=== PATIENT | female | born 1975 | race Two or more races ===

== ENCOUNTER 2024-11-21 08:52 | Inpatient (IN) | payer MEDICAID, SELFPAY ==
[2024-11-21] VITALS (8 sets, daily range): BP systolic 102–131; BP diastolic 68–88; PULSE 80–101; RESP 15–100; TEMP 36.3–37.2; O2SAT 96–99; BMI 25.0
--- NOTE | 2024-11-21 | XR_ITS ---
Examinations: MRI Brain without intravenous contrast. MRA brain without intravenous contrast. MRA carotids without intravenous contrast 3-D vascular reconstructions Date and time of exam: November 21, 2024 1326 hrs. Indications: Stroke alert today, onset vomiting altered mental status left-sided body weakness Technique: Multiple axial and sagittal images of the brain have been obtained MRA brain carotid images without contrast obtained, including 3-D postprocessing, vascular maximum intensity projection images Findings: Extensive magnetic susceptibility artifact, likely dental work obscures the anterior portions of the diffusion weighted images No focus of restricted diffusion is noted No FLAIR images diagnostic for demyelinating disease No significant ventricular enlargement No mass effect Pituitary is not enlarged Impression: Limited study, extensive magnetic susceptibility artifact No acute infarct noted No findings diagnostic for demyelinating disease
--- NOTE | 2024-11-21 08:54 | PC.NURSE ---
PT BROUGHT IN FRONT OF E.D. WITH FRIEND. PT IN WHEELCHAIR NOT TALKING. PER FRIEND SHE TOLD ME HER CHEST IS HURTING SINCE LAST NIGHT. PT LEANING TO RIGHT ON CHAIR AND UPON CLOSER ASSESSMENT, PT OPENED EYES WHEN NURSE OPENED HER EYES FIRST THEN NURSE NOTED LEFT ARM FLACCID. PT FOLLOWING DOMMAND TO LEFT ARMS AND RAISED RIGHT ARM BUT NOT LEFT. STROKE ALERT CALLED AND PT TAKEN INTO OLD TRIAGE ROOM TO BE SEEN BY DR. RIOS.
--- NOTE | 2024-11-21 08:58 | EKG_ITS ---
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
--- NOTE | 2024-11-21 08:58 | XR_ITS ---
Examination: CTA carotids with intravenous contrast CTA brain, head with intravenous contrast. 2-D sagittal, coronal reconstructions. 3-D reconstructions. Exam date and time: November 21, 2024 0911 hrs. Indications: Stroke alert, onset left-sided body weakness beginning last night CTDI: vol (mGy) 31.8 DLP: (mGycm) 478 Technique: Multiple CTA axial brain, head carotid images post intravenous contrast injection 100 cc, Isovue-370. 2-D sagittal, coronal reconstructions. 3-D reconstructions, 3-D post processing including vascular maximum intensity projection images. Low dose protocols were performed. One or more of the following dose reduction techniques were used; automated exposure control, adjustment of the mA and/or KV according to patient size, use of iterative reconstruction technique. Findings: No significant common carotid carotid bifurcation retro-orbital stenoses Dominant right vertebral artery with no critical stenoses No cerebral large vessel arterial occlusions, thrombus dissection or cerebral aneurysm Impression: No significant neck arterial stenoses No cerebral large vessel arterial occlusions
--- NOTE | 2024-11-21 08:58 | XR_ITS ---
Examination: CT brain head without contrast. 2-D sagittal coronal reconstructions Date and time of exam:November 21, 2024 0904 hrs. Indications: Stroke alert, onset left-sided body numbness and weakness beginning last night CTDI: vol (mGy):40.4 DLP: (mGycm):917 Technique: Multiple CT axial sections of the brain have been obtained, 5 mm slice thickness. Contrast has not been administered. 2-D sagittal, coronal reconstructions have been obtained Low dose protocols were performed. One or more of the following dose reduction techniques were used; automated exposure control, adjustment of the mA and/or KV according to patient size, use of iterative reconstruction technique. Findings: No significant ventricular enlargement. Intra-axial or extra-axial hemorrhage density is not seen. No mass effect or midline shift Basal cisterns are not remarkable. Fourth ventricle is midline. Cranial vault intact. Impression: Negative for acute hemorrhage, mass effect or midline shift Brain MRI follow-up would best assess for demyelinating disease, acute ischemic change
[2024-11-21 09:13] LABS: Basophils # (Auto) 0.1 Thou/mm3 (0.0-0.2); Basophils % (Auto) 1 % (0-2.5); Eosinophils % (Auto) 0 % (0-10); Hematocrit 38.2 % (36.0-46.0); Hemoglobin 12.8 g/dL (12.0-16.0); Immature Granulocytes % (Auto) 0 % (0-0); Immature Granulocytes Auto 0.02 Thou/mm3 (0.00-0.00); Lymphocytes # (Auto) 1.3 Thou/mm3 (1.0-4.8); Lymphocytes % (Auto) 15 % (10-50); Mean Corpuscular HGB Conc 33.5 g/dl (31.0-37.0); Mean Corpuscular Hemoglobin 30.8 pg (25.0-35.0); Mean Corpuscular Volume 92 fL (80-100); Monocytes # (Auto) 0.6 Thou/mm3 (0.0-0.8); Monocytes % (Auto) 8 % (0-12); Neutrophils # (Auto) 6.5 Thou/mm3 (1.8-7.7); Neutrophils % (Auto) 77 % (37-80); Nucleated Red Blood Cell % 0 /100 WBC (0); Platelet Count 231 Thou/mm3 (140-440); RDW Standard Deviation 51.7 fL (36.4-46.3); Red Blood Count 4.15 Miln/mm3 (4.00-5.20); White Blood Count 8.5 Thou/mm3 (3.6-11.0)
[2024-11-21] MEDS: LORazepam 2 MG/ML VIAL IVP (09:20)
[2024-11-21 09:25] LABS: HCG Titer if Positive Negative
[2024-11-21 09:27] LABS: Partial Thromboplastin Time 24.8 Seconds (22.0-36.0); Prothrombin Time 10.7 Seconds (9.0-12.2)
[2024-11-21] MEDS: levETIRAcetam INJ 100 MG/ML VIAL 5ML 2000 MG IVP (09:30)
[2024-11-21 09:32] LABS: Alanine Aminotransferase 22 U/L (10-49); Albumin, Serum 4.2 gm/dL (3.5-5.0); Albumin/Globulin Ratio 1.1 (1.2-2.2); Alcohol, Blood Medical < 10.0 mg/dL (0-10.0); Alkaline Phosphatase 75 U/L (46-116); Anion Gap 7 (7-16); Aspartate Amino Transferase 24 U/L (0-34); BUN/Creatinine Ratio 15 Ratio (12-20); Bilirubin,Total 0.4 mg/dL (0.3-1.2); Blood Urea Nitrogen 12 mg/dL (9-23); Calcium 9.5 mg/dL (8.3-10.6); Calcium (Corrected) 9.5 mg/dL (8.5-10.1); Carbon Dioxide 23.6 mMol/L (20.0-31.0); Chloride 107 mMol/L (98-107); Creatinine (Component) 0.8 mg/dL (0.6-1.3); Globulin 3.8 gm/dL (2.3-3.5); Glucose 106 mg/dL (74-106); Magnesium 1.8 mg/dL (1.6-2.6); Osmolality,Calculated 275 (275-295); Potassium 4.2 mMol/L (3.4-5.1); Sodium 138 mMol/L (136-145); Troponin I < 0.002 ng/mL (0.0-0.045); eGFR > 60 See Note
--- NOTE | 2024-11-21 10:17 | PD.EDCHEST ---
ED Chest Pain RME/HPI General Chief Complaint: Chest Pain Stated Complaint: CHEST PAIN SINCE LAST NIGHT Time Seen by Provider: 11/21/24 09:05 Arrival date/time: 11/21/24 08:52 RME / HPI RME / HPI narrative: 49 year old female presents to the ED for evaluation of chest pain beginning last night. Described as aching in sensation and located most to the left side. However, while being triaged this morning had complained of left arm weakness and was noted to be leaning to the left side, a stroke alert was called overhead. Related Data Allergies Allergy/AdvReac Type Severity Reaction Status Date / Time No Known Drug Allergies Allergy Verified 11/21/24 09:39 Review of Systems Review of Systems Narrative Review of Systems: Gen: No fever, no chills EYES: No discharge, no visual changes, no pain HEENT: No ear pain, no congestion, no sore throat PULM: no shortness of breath, no cough, no congestion CV: + chest pain, no palpitations, no chest tightness GI: No nausea, no vomiting, no diarrhea, no pain, no constipation : No frequency, no urgency,? no dysuria Musc/skel: No joint pain, no back pain Skin: No rash, no ecchymosis, no lesions Psyc: No hallucinations, no depression Heme/Lymph: No easy bleeding or bruising tendencies Neuro: +left arm weakness, no headache Past Medical History Past Medical History RESPIRATORY: Negative Respiratory Disorders Social History SMOKING STATUS: Unknown if ever smoked ED Exam Narrative Physical exam: GENERAL APPEARANCE: AxOx4, poor eye contact, crying, anxious appearing HEENT: NC, AT. MMM. EOMI, clear conjunctiva, oropharynx clear. NECK: Supple without lymphadenopathy. No stiffness or restricted ROM. HEART: Normal rate and regular rhythm, normal S1/S1, no m/r/g LUNGS: CTAB, moving air well. No crackles or wheezes are heard. ABDOMEN: Soft, nontender, nondistended with good bowel sounds heard. BACK: No midline C/T/L spine pain or deformity, No CVAT, no obvious deformity. EXTREMITIES: Without cyanosis, clubbing or edema. MUSCULOSKELETAL: Left arm paralysis, no chest tenderness NEUROLOGICAL: Left arm paralysis. Alert and oriented. CN not formally tested but appear grossly intact. Skin: Warm and dry without any rash. Course Quality Measures Suspected type of Stroke: Non Acute Tenecteplase given: Reason(s) TPA not given: Stroke severity too mild (non-disabling) not given stroke Orders Category Date Time Status Bedside Blood Glucose NOW Care 11/21/24 08:58 Active COVID-19 Screening Questionnaire NOW Care 11/21/24 10:16 Active Typing Checker NOW Care 11/21/24 08:58 Active Continuous Pulse Oximetry NOW Care 11/21/24 08:58 Completed Decision to Admit X1 Care 11/21/24 10:16 Completed EKG (ED ONLY) *Do not use* NOW Care 11/21/24 08:58 Completed In and Out Catheter NEEDED Care 11/21/24 08:58 Active Insert IV NOW Care 11/21/24 08:58 Active NIH Stroke Scale now Care 11/21/24 08:58 Active NPO NOW Care 11/21/24 08:58 Active Neuro Check Q15MIN Care 11/21/24 08:58 Completed Nurse Swallow Screen x1 Care 11/21/24 08:58 Active Consult to Neurology / Tele-Neurology Routine Cons 11/21/24 08:[address] angio stroke protocol Stat Exams 11/21/24 08:[address] stroke protocol Stat Exams 11/21/24 08:58 Completed EKG (ED Only) Stat Exams 11/21/24 08:58 Draft Alcohol, Blood Medical Stat Lab 11/21/24 09:02 Completed CBC Stat Lab 11/21/24 09:02 Completed Comprehensive Metabolic Panel Stat Lab 11/21/24 09:02 Completed Drug Screen,Urine Stat Lab 11/21/24 12:35 Completed HCG Titer if Positive Stat Lab 11/21/24 09:02 Completed Lactic Acid [Lactate (Lactic Acid)] Stat Lab 11/21/24 10:31 Completed Magnesium Stat Lab 11/21/24 09:02 Completed Partial Thromboplastin Time Stat Lab 11/21/24 09:02 Completed Procalcitonin Stat Lab 11/21/24 10:31 Completed Prothrombin Time with INR Stat Lab 11/21/24 09:02 Completed Troponin I Stat Lab 11/21/24 09:02 Completed Urinalysis Stat Lab 11/21/24 12:35 Completed Urine Culture Stat Lab 11/21/24 12:35 Received Aspirin Med 11/21/24 10:13 Discontinued 325 mg PO X1 ONE LORazepam [Ativan Inj] Med 11/21/24 09:03 Discontinued 2 mg IVP X1 ONE Ondansetron Inj [Zofran Inj] Med 11/21/24 08:58 Active 4 mg IV Q4HR PRN levETIRAcetam INJ [Keppra Inj] Med 11/21/24 09:21 Discontinued 2,000 mg IVP X1 ONE Oxygen Delivery NOW RT 11/21/24 08:58 Active Reevaluation(s) Reevaluation #1: Patient sleeping comfortably Time: 10:12 Vital Signs Vital signs: Vital Signs Temperature 97.4 F 11/21/24 09:02 Pulse Rate 86 11/21/24 09:02 Respiratory Rate 18 11/21/24 09:02 Blood Pressure 131/88 H 11/21/24 09:02 Pulse Oximetry (%) 99 11/21/24 09:02 Oxygen Delivery Method Room Air 11/21/24 09:02 Pulse ox is 99% on room air which is adequate. Chest Pain MDM Narrative MDM Narrative:: Samantha Velarde am scribing for and in the presence of Dr. Mccrary. Patient data External records reviewed:: [facility] previous records (Per EMR, no previous ED Visits for review ) Clinical information provided by:: patient Social determinants that could affect healthcare access:: none Patient has the following chronic illnesses:: CAD How is presenting disease/condition affected by chronic disease/condition?: exacerbated by Evaluation data The following diagnostics were reviewed and interpreted by me:: lab results, radiology exam(s) and EKG tracing(s) (EKG #1 @ 0857 shows sinus rhythm, rate 90, no acute ischemic changes, no STEMI. EKG #2 @ 0929 shows sinus rhythm, rate 109, motion artifact, no STEMI. ) Lab and/or radiology exams considered but not ordered:: None Interpretation Summary: Ordering Physician: Bahman Mccrary MD Date of Service: 11/21/24 Procedure(s): CT stroke protocol Accession Number(s): [id number] cc: Bahman Mccrary MD; Alexander Juan MD~ Examination: CT brain head without contrast. 2-D sagittal coronal reconstructions Date and time of exam:November 21, 2024 0904 hrs. Indications: Stroke alert, onset left-sided body numbness and weakness beginning last night CTDI: vol (mGy):40.4 DLP: (mGycm):917 Technique: Multiple CT axial sections of the brain have been obtained, 5 mm slice thickness. Contrast has not been administered. 2-D sagittal, coronal reconstructions have been obtained Low dose protocols were performed. One or more of the following dose reduction techniques were used; automated exposure control, adjustment of the mA and/or KV according to patient size, use of iterative reconstruction technique. Findings: No significant ventricular enlargement. Intra-axial or extra-axial hemorrhage density is not seen. No mass effect or midline shift Basal cisterns are not remarkable. Fourth ventricle is midline. Cranial vault intact. Impression: Negative for acute hemorrhage, mass effect or midline shift Brain MRI follow-up would best assess for demyelinating disease, acute ischemic change Dictated By:Alexander Juan MD Signed By:<Electronically signed by Alexander Juan MD in [place]>11/21/24 0910 Ordering Physician: Bahman Mccrary MD Date of Service: 11/21/24 Procedure(s): CT angio stroke protocol Accession Number(s): [id number] cc: Bahman Mccrary MD; Alexander Juan MD~ Examination: CTA carotids with intravenous contrast CTA brain, head with intravenous contrast. 2-D sagittal, coronal reconstructions. 3-D reconstructions. Exam date and time: November 21, 2024 0911 hrs. Indications: Stroke alert, onset left-sided body weakness beginning last night CTDI: vol (mGy) 31.8 DLP: (mGycm) 478 Technique: Multiple CTA axial brain, head carotid images post intravenous contrast injection 100 cc, Isovue-370. 2-D sagittal, coronal reconstructions. 3-D reconstructions, 3-D post processing including vascular maximum intensity projection images. Low dose protocols were performed. One or more of the following dose reduction techniques were used; automated exposure control, adjustment of the mA and/or KV according to patient size, use of iterative reconstruction technique. Findings: No significant common carotid carotid bifurcation retro-orbital stenoses Dominant right vertebral artery with no critical stenoses No cerebral large vessel arterial occlusions, thrombus dissection or cerebral aneurysm Impression: No significant neck arterial stenoses No cerebral large vessel arterial occlusions Dictated By:Alexander Juan MD Signed By:<Electronically signed by Alexander Juan MD in OV>11/21/24 0953 Ordering Physician: Bahman Mccrary MD Date of Service: 11/21/24 Procedure(s): CT angio stroke protocol Accession Number(s): [id number] cc: Bahman Mccrary MD; Alexander Juan MD~ Examination: CTA carotids with intravenous contrast CTA brain, head with intravenous contrast. 2-D sagittal, coronal reconstructions. 3-D reconstructions. Exam date and time: November 21, 2024 0911 hrs. Indications: Stroke alert, onset left-sided body weakness beginning last night CTDI: vol (mGy) 31.8 DLP: (mGycm) 478 Technique: Multiple CTA axial brain, head carotid images post intravenous contrast injection 100 cc, Isovue-370. 2-D sagittal, coronal reconstructions. 3-D reconstructions, 3-D post processing including vascular maximum intensity projection images. Low dose protocols were performed. One or more of the following dose reduction techniques were used; automated exposure control, adjustment of the mA and/or KV according to patient size, use of iterative reconstruction technique. Findings: No significant common carotid carotid bifurcation retro-orbital stenoses Dominant right vertebral artery with no critical stenoses No cerebral large vessel arterial occlusions, thrombus dissection or cerebral aneurysm Impression: No significant neck arterial stenoses No cerebral large vessel arterial occlusions Dictated By:Alexander Juan MD Signed By:<Electronically signed by Alexander Juan MD in OV>11/21/24 0940 Medications / Prescriptions Medications or Prescriptions considered but not ordered:: None Medication administrations:: Medication Administration History Aspirin (Aspirin Ec 81 Mg Tabec) 81 mg PO X1 ONE Stop: 11/21/24 21:01 Atorvastatin Calcium (Atorvastatin Calcium 20 Mg Tablet) 80 mg PO HS NURIS Stop: 12/21/24 20:59 Heparin Sodium (Porcine) (Heparin Sod Inj 5000 Unit/Ml Vial) 7,500 unit SC Q8HR NURIS Stop: 12/05/24 21:59 Levetiracetam (Levetiracetam Inj 100 Mg/Ml Vial 5ml) 1,000 mg IVP Q12HR NURIS Stop: 12/21/24 20:59 Lorazepam (Lorazepam 2 Mg/Ml Vial) 2 mg IVP Q5MIN PRN PRN Reason: seizure breakthrough Stop: 11/26/24 12:23 Ondansetron HCl (Ondansetron Inj 2 Mg/Ml Inj 2 Ml) 4 mg IV Q4HR PRN PRN Reason: NAUSEA OR VOMITING Stop: 12/21/24 08:57 Last Admin: 11/21/24 16:34 Dose: 4 mg Documented By: TIMOTHY Discontinued Medications Aspirin (Aspirin 325 Mg Tablet) 325 mg PO X1 ONE Stop: 11/21/24 10:14 Last Admin: 11/21/24 10:54 Dose: 325 mg Documented By: TIMOTHY Levetiracetam (Levetiracetam Inj 100 Mg/Ml Vial 5ml) 2,000 mg IVP X1 ONE Stop: 11/21/24 09:22 Last Admin: 11/21/24 09:30 Dose: 2,000 mg Documented By: TIMOTHY Lorazepam (Lorazepam 2 Mg/Ml Vial) 2 mg IVP X1 ONE Stop: 11/21/24 09:04 Last Admin: 11/21/24 09:20 Dose: 2 mg Documented By: See above Consultations Consultation(s) initiated? (list below): Yes Consultation #1 (Physician, Specialty, Details): I spoke with teleneurologist, reports patient is not a tPA candidate. Recommends admission EEG, MRI, and Ativan. Time: 09:20 Consultation #2 (Physician, Specialty, Details): I spoke with resident Dr. Salmon working with Dr. Cowart. Discussed patients PMHx, HPI, ED course, exam findings, labs, and radiology results. The hospitalist agree to accept the patient for admission. Time: 10:15 Diagnosis Chest Pain Differential Diagnosis: pneumothorax, stable angina, unstable angina pectoris, atypical chest pain, st elevation myocardial infarction, costochondritis, chest pain, biliary colic and other (CVA, TIA ) Most likely diagnosis given after review of the tests above:: Weakness Anxiety Seizure Admission Indicated Admission indicated?: indicated Admission Request Was there a request for admission?: Yes Admission Attestation Admission request attestation: Discussed case with [] from Hospitalist service regarding admission. Discussed patients ED course, exam findings, labs, and radiology results. The Hospitalist [agrees,declines] to accept the patient for admission. Disposition Plan Disposition Plan: Admit Discharge Plan Plan Patient Disposition: Admit Acute Care w/in Hospital Problem List Clinical Impression: Weakness, Anxiety, Seizure
[2024-11-21 10:37] LABS: Lactate (Lactic Acid) 1.9 mMol/L (0.4-2.0)
[2024-11-21] MEDS: Aspirin 325 MG TABLET PO (10:54)
[2024-11-21 11:13] LABS: Procalcitonin 0.04 ng/ml (0.0-0.49)
--- NOTE | 2024-11-21 12:42 | PC.NURSE ---
This senior copywriter answered the call light for patient. Patient was full body shaking vigorously. Car Rental Deliverer asked patient if she was seizing and patient shook her head yes. Patient stopped shaking. Patient's significant other stated he was going to leave and get her medications. Patient began full body shaking again. Boyfriend left, patient stopped shaking and stated she needed to go to the bathroom. During these shaking episodes patient generally remains able to communicate throughout with about 10 seconds of not answering back (senior copywriter was speaking Stateless and patient is Maori speaking). No postictal state noted. MD notified and PRN ativan orders placed however patient not shaking/seizing so not given at this time.
[2024-11-21 12:45] LABS: Collection Type, Urine Clean Catch; WBC,Urine 0 /hpf (0-5)
--- NOTE | 2024-11-21 12:48 | PC.NURSE ---
Patients bed rails pads applied upon exiting CT on arrival
[2024-11-21 12:54] LABS: Bilirubin,Urine Negative (Negative); Blood,Urine Negative (Negative); Clarity,Urine Clear (Clear/Hazy); Color,Urine Colorless (Lt Yel-Yel); Glucose, Urine Negative (Negative); Ketones,Urine Negative (Negative); Leukocyte Esterase,Urine Negative (Negative); Nitrite,Urine Negative (Negative); Protein,Urine Negative (Neg - Trace); RBC,Urine 1 /hpf (0-3); Specific Gravity,Urine 1.041 (1.001-1.035); Squamous Epithelial Cell,Urine 1 /hpf (0-5); Urobilinogen,Urine Negative mg/dL (0.0-1.0)
--- NOTE | 2024-11-21 13:02 | ESHP_ITS ---
Documentation for date of: 11/21/24 HPI History of Present Illness History of present illness: 49-year-old Khmer speaking female patient with significant medical history for seizures and CAD came into ED for chest pain and seizure-like activities. Patient recently came from [place] to [facility] [place]. Per patient, she was worked up for CAD and was started on aspirin. Patient denied having previous symptoms of left-sided weakness, denied fever, chills, abdominal pain, diarrhea, constipation or other associate symptoms. Patient states that she is compliant with her seizure medication carbamazepine. Today she states that for the last month she has been having intermittent chest pain radiating to the left arm. Today she decided to come to ED since it was associated with nausea and vomiting along with left-sided weakness. ED vitals significant for BP 131/88, CBC was unremarkable, CMP was within normal limits, trops negative. Urinalysis was negative for UTI and toxicology was negative. EKG showed sinus tachycardia. In ED stroke alert was initiated. Head CT and head neck CTA were negative. Neuro telemetry was consulted by ED and recommendations were made for: patient is not a tPA candidate. Recommends admission EEG, MRI, and Ativan. Patient admitted for CVA and seizure workup. Medical Hx: CAD and seizure disorder Medications (need reconciliation): Aspirin and carbamazepine Surgical Hx: None Social Hx: Denies smoking cigarettes, drinking alcohol or using other illicit drugs, permanent residence in [place] Allergies: NKDA CODE STATUS: Full code Review of Systems Review of Systems Systems Reviewed: All systems reviewed, normal except as documented Exam Vital Signs Temp Pulse Resp BP Pulse Ox O2 Del Method O2 Flow Rate 98.8 F 96 21 H 114/68 97 Room Air 6 11/21/24 12:50 11/21/24 12:50 11/21/24 12:50 11/21/24 12:50 11/21/24 12:50 11/21/24 12:50 11/21/24 09:39 Narrative Exam Constitutional: well-developed, well-nourished, in mild distress, able to follow commands HEENT: NCAT, EOMI, reactive round pupils b/l, patent nares b/l, moist mucous membranes, tongue and uvula midline Lung: CTAB, no wheezing, no rhonchi Heart: Regular S1S2, no murmurs, gallops, or rubs Abdomen: Soft, non-distended, non-tender, bowel sounds present throughout Extremities: No cyanosis, clubbing, or edema, LE pulses present b/l Neurologic: AOx3, left side face droop, left face sensation loss, inability to smile or buffer cheeks, left side hemiparessis with loss of strength and sensation Skin: Warm, dry, no lesions or rashes noted Results: Labs 11/23/24 05:36 11/23/24 05:36 Labs: Short CBC 11/21/24 Range/Units 09:02 WBC 8.5 (3.6-11.0) Thou/mm3 Hgb 12.8 (12.0-16.0) g/dL Hct 38.2 (36.0-46.0) % Plt Count 231 (140-440) Thou/mm3 BMP 11/21/24 09:02 Sodium 138 Potassium 4.2 Chloride 107 Carbon Dioxide 23.6 BUN 12 Creatinine 0.8 Glucose 106 Calcium 9.5 Cardiac Enzymes 11/21/24 Range/Units 09:02 Troponin I < 0.002 (0.0-0.045) ng/mL Liver Function 11/21/24 Range/Units 09:02 Total Bilirubin 0.4 (0.3-1.2) mg/dL AST 24 (0-34) U/L ALT 22 (10-49) U/L Alkaline Phosphatase 75 (46-116) U/L Albumin 4.2 (3.5-5.0) gm/dL Quality Measures Quality Measures stroke Suspected type of Stroke: Non Acute Last known well (date): 11/21/24 Last known well (time): 03:00 Tenecteplase given: Reason(s) Tenecteplase not given: Stroke severity too mild (non-disabling) not given Rehab services: PT evaluation ordered VTE Prophylaxis: pharmaceutical Antithrombotic by day 2:: not indicated (describe) Statin ordered: <75 y/o high intensity dose Anticoagulation ordered for A-fib or flutter (current or hx): ordered Medications Home Medications and Allergies Allergies Allergy/AdvReac Type Severity Reaction Status Date / Time No Known Drug Allergies Allergy Verified 11/21/24 09:39 Visit Medications Aspirin (Aspirin Ec 81 Mg Tabec) 81 mg PO X1 ONE Stop: 11/21/24 21:01 Levetiracetam (Levetiracetam Inj 100 Mg/Ml Vial 5ml) 1,000 mg IVP Q12HR NURIS Stop: 12/21/24 20:59 Lorazepam (Lorazepam 2 Mg/Ml Vial) 2 mg IVP Q5MIN PRN PRN Reason: seizure breakthrough Stop: 11/26/24 12:23 Ondansetron HCl (Ondansetron Inj 2 Mg/Ml Inj 2 Ml) 4 mg IV Q4HR PRN PRN Reason: NAUSEA OR VOMITING Stop: 12/21/24 08:57 Discontinued Medications Aspirin (Aspirin 325 Mg Tablet) 325 mg PO X1 ONE Stop: 11/21/24 10:14 Last Admin: 11/21/24 10:54 Dose: 325 mg Levetiracetam (Levetiracetam Inj 100 Mg/Ml Vial 5ml) 2,000 mg IVP X1 ONE Stop: 11/21/24 09:22 Last Admin: 11/21/24 09:30 Dose: 2,000 mg Lorazepam (Lorazepam 2 Mg/Ml Vial) 2 mg IVP X1 ONE Stop: 11/21/24 09:04 Last Admin: 11/21/24 09:20 Dose: 2 mg Assessment & Plan Plan 49-year-old female patient with significant medical history for CAD and seizures admitted for CVA and seizure workup. #Acute CVA work-up #Left side hemiparesis Head CT negative Head neck CTA negative Brain MRI stroke protocol negative for acute changes Echocardiogram with bubble study pending Plan: -Patient admitted to telemetry -Neurochecks every 4 hours -HgB A1c and Lipid panel ordered -DVT prophylaxis -Continue Plavix 70 mg, ASA 81 mg, atorvastatin 80 mg -Head of bed 30 degrees -Q4hr neurochecks -Seizure precautions -Patient out of time window for IV thrombolytics -TTE with bubble study ordered -Speech therapy and physical therapy ordered -Neurology Dr Morales onboard, recommendations are greatly appreciated -CT angio stroke protocol -Brain MRI w/o contrast #Seizure disorder In ED patient witnessed to have seizure-like activity Patient administered Ativan for breakthrough in ED Patient with history of seizure for 20 years, on carbamazepine Plan: -Admitted on telemetry -Seizure precautions -Cardiac diet after passing swallow evaluation -MRI brain with and without contrast -EEG ordered -Orthostatic vitals -Keppra IV 1000 mg twice daily -Ativan 2mg IV [id number] for seizure breakthrough -Neurology Dr. Morales consulted, recommendations are greatly appreciated #CAD Patient complaining of left side chest pain Patient underwent procedural study in [place] Trops and EKG negative Plan: -Continue aspirin 81 qday -Echo with bubble study pending -Morphine for pain management -Cardiac consult not needed at this moment Health Maintenance Dispo: Patient admitted for CVA and seizure workup Diet: N.p.o. until passing of swallow eval DVT/PPx: Heparin GI ppx: None Lines: PIV Code Status: Full code This patient care was discussed with my attending Dr. Sofya Salmon MD PGY-2 Disclaimer: Minor errors in marketing services vice president may be present since this note was dictated by speech recognition software. Attending Provider Attestation/Addendum I have discussed and was present for the essential components of the history, physical examination, diagnosis, and treatment plan with the resident. I agree with the patient's care as documented by the resident and amended herein by me. Jose Alberto Cowart DO. Although this document has been carefully reviewed, there may still be some phonetic and other typographical errors. These errors are purely grammatical due to imperfections in the software program and should not be construed in any way to compromise the substance of the patient's medical care during this visit.
--- NOTE | 2024-11-21 13:04 | RESP.EEG ---
Chelseakr to Dr Salmon and made aware that EEG can not be completed in ED3. said to wait until admitted in room. Will continue to monitor and complete EEG as soon as able to
[2024-11-21 13:08] LABS: Amphetamine/Methamp Scrn,U Negative (Negative); Barbiturate Screen,Urine Negative (Negative); Benzodiazepines Screen,Urine Negative (Negative); Benzoylecgonine Screen, Ur Negative (Negative); Fentanyl Screen,Urine Negative (Negative); Opiate Screen,Urine Negative (Negative); THC Screen,Urine Negative (Negative)
[2024-11-21] MEDS: ONDANSETRON INJ 2 MG/ML INJ 2 ML 4 MG IV (16:34)
--- NOTE | 2024-11-21 16:35 | PC.NURSE ---
Patient had 1 episode of emesis. Zofran given
--- NOTE | 2024-11-21 16:50 | PC.NURSE ---
Report given to to paige GONZALEZ
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
[2024-11-21] MEDS: ASPIRIN EC 81 MG TABEC PO (20:47)
[2024-11-21] MEDS: levETIRAcetam INJ 100 MG/ML VIAL 5ML 1000 MG IVP (20:47)
[2024-11-21] MEDS: ATORVASTATIN CALCIUM 20 MG TABLET 80 MG PO (20:47)
[2024-11-21] MEDS: ALPRazoLAM 0.25 MG TABLET 0.5 MG PO (22:14)
--- NOTE | 2024-11-21 22:28 | RESP.EEG ---
EEG NOT COMPLETED AT THIS TIME. SPOKE TO RN ALEA AND PT WAS JUST GIVEN XANAX. PT ALSO STATES TO RN ISSUES WITH HER . SNOWBOARDER TO INTERVENE. EEG ON HOLD.
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
[2024-11-22] VITALS (9 sets, daily range): BP systolic 94–126; BP diastolic 62–76; PULSE 72–101; RESP 14–99; TEMP 36.2–36.9; O2SAT 97–100; BMI 26.5
[2024-11-22] MEDS: ONDANSETRON INJ 2 MG/ML INJ 2 ML 4 MG IV (05:19)
[2024-11-22 06:41] LABS: Glucose Estimated Average 105 mg/dL (80-131); Hemoglobin A1C 5.3 % Hgb (4.8-6.0)
[2024-11-22 06:49] LABS: Cardiac Risk Estimate 2.6 RATIO (3.7-5.6); Cholesterol 169 mg/dL (132-200); HDL Cholesterol 64 mg/dL (40-60); LDL Cholesterol,Calculated 96 mg/dL (0-130); Thyroid Stimulating Hormone 2.06 uIU/mL (0.55-4.78); Triglycerides 44 mg/dL (30-150)
[2024-11-22 08:33] LABS: Alanine Aminotransferase 23 U/L (10-49); Albumin, Serum 3.9 gm/dL (3.5-5.0); Albumin/Globulin Ratio 1.2 (1.2-2.2); Alkaline Phosphatase 71 U/L (46-116); Anion Gap 5 (7-16); Aspartate Amino Transferase 24 U/L (0-34); BUN/Creatinine Ratio 14 Ratio (12-20); Bilirubin,Total 0.8 mg/dL (0.3-1.2); Blood Urea Nitrogen 11 mg/dL (9-23); Calcium 9.1 mg/dL (8.3-10.6); Calcium (Corrected) 9.2 mg/dL (8.5-10.1); Carbon Dioxide 26.5 mMol/L (20.0-31.0); Chloride 106 mMol/L (98-107); Creatinine (Component) 0.8 mg/dL (0.6-1.3); Estimated Creatinine Clearance 92.9 mL/min (>60); Globulin 3.3 gm/dL (2.3-3.5); Glucose 77 mg/dL (74-106); Osmolality,Calculated 272 (275-295); Potassium 4.2 mMol/L (3.4-5.1); Sodium 137 mMol/L (136-145); Total Protein 7.2 gm/dL (5.7-8.2); eGFR > 60 See Note
[2024-11-22 08:40] LABS: Basophils % (Auto) 1 % (0-2.5); Eosinophils % (Auto) 1 % (0-10); Hematocrit 37.4 % (36.0-46.0); Hemoglobin 12.6 g/dL (12.0-16.0); Immature Granulocytes % (Auto) 0 % (0-0); Immature Granulocytes Auto 0.01 Thou/mm3 (0.00-0.00); Lymphocytes # (Auto) 1.4 Thou/mm3 (1.0-4.8); Lymphocytes % (Auto) 24 % (10-50); Mean Corpuscular HGB Conc 33.7 g/dl (31.0-37.0); Mean Corpuscular Hemoglobin 30.8 pg (25.0-35.0); Mean Corpuscular Volume 91 fL (80-100); Monocytes # (Auto) 0.7 Thou/mm3 (0.0-0.8); Monocytes % (Auto) 11 % (0-12); Neutrophils # (Auto) 3.8 Thou/mm3 (1.8-7.7); Neutrophils % (Auto) 63 % (37-80); Nucleated Red Blood Cell % 0 /100 WBC (0); Platelet Count 219 Thou/mm3 (140-440); RDW Standard Deviation 51.3 fL (36.4-46.3); Red Blood Count 4.09 Miln/mm3 (4.00-5.20); White Blood Count 5.9 Thou/mm3 (3.6-11.0)
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
--- NOTE | 2024-11-22 15:26 | PC.NURSE ---
Pt states to this designer/writer she can't move her left arm , pt was just seen by telesitter minutes ago texting on cell and moving both arms, stepped out to call hospitalist and notify , received a call from telesitter pt moving both arms again walked into room pt states she just regained movement when I walked out of room
[2024-11-22] MEDS: ATORVASTATIN CALCIUM 20 MG TABLET 80 MG PO (20:30)
--- NOTE | 2024-11-22 23:56 | PD.VPROG1 ---
Telemedicine visit statement This visit was conducted with the use of interactive audio and video telecommunications system that permits real time communication between the patient and the provider. Patient's verbal consent for virtual visit was obtained on 11/22/24 at 2356. Documentation for date of: 11/22/24 Subjective Subjective Interval history: Patient was seen in telemetry virtually, patient continued to feel weak, dizzy and have numbness in the left hemiface. No seizures reported after admission. Virtual exam Vital Signs Temp Pulse Resp BP Pulse Ox O2 Del Method O2 Flow Rate 97.3 F 77 14 110/76 97 Room Air 2 11/22/24 20:00 11/22/24 20:00 11/22/24 20:00 11/22/24 20:00 11/22/24 20:00 11/22/24 20:00 11/22/24 19:50 Objective Labs 11/22/24 05:04 11/22/24 05:04 Labs: Laboratory Results - last 24 hr 11/22/24 05:04 WBC 5.9 RBC 4.09 Hgb 12.6 Hct 37.4 MCV 91 MCH 30.8 MCHC 33.7 RDW Std Deviation 51.3 H Plt Count 219 Neut % (Auto) 63 Lymph % (Auto) 24 [place] % (Auto) 11 Eos % (Auto) 1 Baso % (Auto) 1 Neut # (Auto) 3.8 Lymph # (Auto) 1.4 [place] # (Auto) 0.7 Eos # (Auto) 0.0 Baso # (Auto) 0.0 Immature Gran # (Auto) 0.01 H Absolute Nucleated RBC 0.00 Immature Gran % 0 Nucleated RBC % 0 Sodium 137 Potassium 4.2 Chloride 106 Carbon Dioxide 26.5 Anion Gap 5 L BUN 11 Creatinine 0.8 Estim Creat Clear Calc 92.9 eGFR > 60 BUN/Creatinine Ratio [address] Glu mg/dL 105 Hemoglobin A1c 5.3 Calculated Osmolality 272 L Calcium 9.1 Corrected Calcium 9.2 Total Bilirubin 0.8 AST 24 ALT 23 Alkaline Phosphatase 71 Total Protein 7.2 Albumin 3.9 Globulin 3.3 Albumin/Globulin Ratio 1.2 Triglycerides 44 Cholesterol 169 LDL Cholesterol, Calc 96 HDL Cholesterol 64 H Cholesterol/HDL Ratio 2.6 L TSH 2.06 Assessment & Plan Problem List (1) Seizure: Status: Acute Assessment and plan: Will hold off on the lorazepam and Keppra for now as we strongly suspect nonepileptic seizure. Follow-up with EEG. Reassurance given to the patient regarding their normal MRI brain (2) Weakness: Status: Acute Assessment and plan: Most likely effort related Advised her to sit up with at the side of the bed while she is eating meals (3) Anxiety: Status: Acute Assessment and plan: She will need evaluation as an outpatient with mental health if EEG comes back negative.
[2024-11-23] VITALS (7 sets, daily range): BP systolic 93–144; BP diastolic 61–81; PULSE 76–111; RESP 15–96; TEMP 36–36.9; O2SAT 95–99; BMI 26.4
[2024-11-23] MEDS: ACETAMINOPHEN 325 MG TABLET 650 MG PO ×2 (00:05→05:23)
--- NOTE | 2024-11-23 05:35 | PD.TNEURO ---
Tele Neuro Consultation Consultation Date 11/21/24 Most Recent Vital Signs Last Vital Signs Temp 97.3 F 11/23/24 04:00 Pulse 84 11/23/24 04:00 Resp 16 11/23/24 04:00 BP 103/72 11/23/24 04:00 Pulse Ox 98 11/23/24 04:00 O2 Del Method Room Air 11/23/24 04:00 O2 Flow Rate 2 11/22/24 19:50 Laboratory-Coagulation Panel PT 10.7 Seconds (9.0-12.2) 11/21/24 09:02 INR 1.0 (0.9-1.3) 11/21/24 09:02 APTT 24.8 Seconds (22.0-36.0) 11/21/24 09:02 Consultation Narrative [facility] Patient Name:???Ailyn Aponte Date of :???1975 Identification Number:??? Date of Service:???11/21/2024 09:05:36 Diagnosis:?R53.1 - Weakness Impression: ?Ailyn Shaw is a 49 yo F with a reported history of stroke and seizures who presents with left sided weakness. Exam is confounded by variable effort but notable for left hemiparesis. Head CT showed no acute intracranial pathology. No LVO on CTA. Spell of abnormal movements witnessed in ED likely psychogenic. Cannot exclude seizure, stroke, or migraine w/ aura as contributing to presenting focal symptoms. Recommend the following: ?- ASA 325 mg now ?- Permissive HTN (SBP <200) until 0300 ?- Bedside swallow eval ?- MRI brain w/o contrast ?- EEG ?-Telemetry ?-TTE ?-hemoglobin A1c, lipid panel ?- PT/OT/TELEVISION ENGINEER ?-Neurology to follow ? Our recommendations are outlined below. Recommendations: ? Stroke/Telemetry Floor ? Neuro Checks ? Bedside Swallow Eval ? DVT Prophylaxis ? IV Fluids, Normal Saline ? Head of Bed 30 Degrees ? Euglycemia and Avoid Hyperthermia (PRN Acetaminophen) Sign Out: ? Discussed with Emergency Department Provider Advanced Imaging: CTA Head and Neck Completed. LVO:No Patient in not a candidate for NARESH Metrics: Last Known Well: 11/21/2024 03:00:00 Dispatch Time: 11/21/2024 09:05:36 Arrival Time: 11/21/2024 08:55:00 Initial Response Time: 11/21/2024 09:11:38Symptoms: left sided weakness. Initial patient interaction: 11/21/2024 09:17:00 NIHSS Assessment Completed: 11/21/2024 09:22:00Patient is not a candidate for Thrombolytic. Thrombolytic Medical Decision: 11/21/2024 09:31:00Patient was not deemed candidate for Thrombolytic because of following reasons: LKW outside 4.[address] head showed no acute hemorrhage or acute core infarct. Primary Provider Notified of Diagnostic Impression and Management Plan on: 11/21/2024 09:45:00 History of Present Illness:Patient is a 49 year old Female. Patient was brought by private transportation with symptoms of left sided weakness. Ailyn Shaw is a 49 yo F with a reported history of stroke and seizures who presents with left sided weakness. LKN at 0300. Around that time, developed headache and left sided weakness. Denies any spells of lost of consciousness. In the ED, had an episode of b/l arm trembling . Said she felt that a seizure was coming on. Several seconds later, had asynchronous limb jerking. Was at her neurological baseline after a few seconds with no change in mentation. Past Medical History: ?Stroke ?Seizures Medications: No Anticoagulant use? No Antiplatelet use Reviewed EMR for current medications Allergies:? Reviewed Social History: Smoking: No Alcohol Use: No Drug Use: No Family History: There is no family history of premature cerebrovascular disease pertinent to this consultation ROS : 14 Points Review of Systems was performed and was negative except mentioned in HPI. Past Surgical History: There Is No Surgical History Contributory To Today?s Visit Examination: BP(131/80),?Pulse(86),?Blood Glucose(108) 1A: Level of Consciousness - Alert; keenly responsive?+ 0 1B: Ask Month and Age - Both Questions Right?+ 0 1C: Blink Eyes & Squeeze Hands - Performs Both Tasks?+ 0 2: Test Horizontal Extraocular Movements - Normal?+ 0 3: Test Visual Ontiveros - No Visual Loss?+ 0 4: Test Facial Palsy (Use Grimace if Obtunded) - Minor paralysis (flat nasolabial fold, smile asymmetry)?+ 1 5A: Test Left Arm Motor Drift - Drift, hits bed?+ 2 5B: Test Right Arm Motor Drift - No Drift for 10 Seconds?+ 0 6A: Test Left Leg Motor Drift - Drift, hits bed?+ 2 6B: Test Right Leg Motor Drift - No Drift for 5 Seconds?+ 0 7: Test Limb Ataxia (FNF/Heel-Dunn) - No Ataxia?+ 0 8: Test Sensation - Normal; No sensory loss?+ 0 9: Test Language/Aphasia - Normal; No aphasia?+ 0 10: Test Dysarthria - Normal?+ 0 11: Test Extinction/Inattention - No abnormality?+ 0 NIHSS Score:?5 Pre-Morbid Modified Woodland Scale:0 Points = No symptoms at all Spoke with :?ED provider This consult was conducted in real time using interactive audio and video technology. Patient was informed of the technology being used for this visit and agreed to proceed. Patient located in hospital and provider located at home/office setting. Patient is being evaluated for possible acute neurologic impairment and high probability of imminent or life-threatening deterioration. I spent total of 31 minutes providing care to this patient, including time for face to face visit via telemedicine, review of medical records, imaging studies and discussion of findings with providers, the patient and/or family. Dr Troy Ingram [facility] For Inpatient follow-up with [facility] physician please call [facility] at . As we are not an outpatient service for any post hospital discharge needs please contact the hospital for assistance. If you have any questions for the [facility] physicians or need to reconsult for clinical or diagnostic changes please contact us via [facility] at .
--- NOTE | 2024-11-23 05:39 | RESP.EEG ---
EEG has been reccorded and is ready for MD interpretation.
[2024-11-23 06:31] LABS: Basophils % (Auto) 1 % (0-2.5); Eosinophils # (Auto) 0.1 Thou/mm3 (0.0-0.5); Eosinophils % (Auto) 2 % (0-10); Hematocrit 39.1 % (36.0-46.0); Hemoglobin 12.9 g/dL (12.0-16.0); Immature Granulocytes % (Auto) 0 % (0-0); Immature Granulocytes Auto 0.02 Thou/mm3 (0.00-0.00); Lymphocytes # (Auto) 1.9 Thou/mm3 (1.0-4.8); Lymphocytes % (Auto) 34 % (10-50); Mean Corpuscular Hemoglobin 30.8 pg (25.0-35.0); Mean Corpuscular Volume 93 fL (80-100); Monocytes # (Auto) 0.7 Thou/mm3 (0.0-0.8); Monocytes % (Auto) 13 % (0-12); Neutrophils # (Auto) 2.7 Thou/mm3 (1.8-7.7); Neutrophils % (Auto) 50 % (37-80); Nucleated Red Blood Cell % 0 /100 WBC (0); Platelet Count 221 Thou/mm3 (140-440); RDW Standard Deviation 52.8 fL (36.4-46.3); Red Blood Count 4.19 Miln/mm3 (4.00-5.20); White Blood Count 5.5 Thou/mm3 (3.6-11.0)
[2024-11-23 06:49] LABS: Alanine Aminotransferase 22 U/L (10-49); Albumin/Globulin Ratio 1.1 (1.2-2.2); Alkaline Phosphatase 70 U/L (46-116); Anion Gap 8 (7-16); Aspartate Amino Transferase 23 U/L (0-34); BUN/Creatinine Ratio 17 Ratio (12-20); Bilirubin,Total 0.8 mg/dL (0.3-1.2); Blood Urea Nitrogen 15 mg/dL (9-23); Calcium 9.3 mg/dL (8.3-10.6); Calcium (Corrected) 9.3 mg/dL (8.5-10.1); Carbon Dioxide 25.1 mMol/L (20.0-31.0); Chloride 104 mMol/L (98-107); Creatinine (Component) 0.9 mg/dL (0.6-1.3); Estimated Creatinine Clearance 82.5 mL/min (>60); Globulin 3.6 gm/dL (2.3-3.5); Glucose 89 mg/dL (74-106); Magnesium 1.9 mg/dL (1.6-2.6); Osmolality,Calculated 273 (275-295); Potassium 4.5 mMol/L (3.4-5.1); Sodium 137 mMol/L (136-145); Total Protein 7.6 gm/dL (5.7-8.2); eGFR > 60 See Note
[2024-11-23] MEDS: IBUPROFEN TAB 400 MG TABLET PO (08:10)
[2024-11-23] MEDS: ONDANSETRON INJ 2 MG/ML INJ 2 ML 4 MG IV (08:11)
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
--- NOTE | 2024-11-23 12:14 | PC.PT ---
Patient is safe to transfer to the commode with 1 staff assist. RN made aware.
--- NOTE | 2024-11-23 13:00 | PD.RESPRO ---
Documentation for date of: 11/23/24 Subjective Subjective Interval history: Patient examined at bedside. No overnight events, complains of headache 8/10 after receiving Tylenol. Improved after ibuprofen. EEG read and echo is pending. Vitals and labs are stable. Stopped lorazepam and Keppra as seizures may be psychogenic in nature. Discharge pending final neuro recs. Exam Vital Signs Temp Pulse Resp BP Pulse Ox O2 Del Method O2 Flow Rate 98.4 F 76 17 93/61 96 Room Air 2 11/23/24 08:00 11/23/24 08:00 11/23/24 08:00 11/23/24 08:00 11/23/24 08:00 11/23/24 08:00 11/22/24 19:50 Objective Labs 11/23/24 05:36 11/23/24 05:36 Labs: Laboratory Results - last 24 hr 11/23/24 05:36 WBC 5.5 RBC 4.19 Hgb 12.9 Hct 39.1 MCV 93 MCH 30.8 MCHC 33.0 RDW Std Deviation 52.8 H Plt Count 221 Neut % (Auto) 50 Lymph % (Auto) 34 [place] % (Auto) 13 H Eos % (Auto) 2 Baso % (Auto) 1 Neut # (Auto) 2.7 Lymph # (Auto) 1.9 [place] # (Auto) 0.7 Eos # (Auto) 0.1 Baso # (Auto) 0.0 Immature Gran # (Auto) 0.02 H Absolute Nucleated RBC 0.00 Immature Gran % 0 Nucleated RBC % 0 Sodium 137 Potassium 4.5 Chloride 104 Carbon Dioxide 25.1 Anion Gap 8 BUN 15 Creatinine 0.9 Estim Creat Clear Calc 82.5 eGFR > 60 BUN/Creatinine Ratio 17 Glucose 89 Calculated Osmolality 273 L Calcium 9.3 Corrected Calcium 9.3 Magnesium 1.9 Total Bilirubin 0.8 AST 23 ALT 22 Alkaline Phosphatase 70 Total Protein 7.6 Albumin 4.0 Globulin 3.6 H Albumin/Globulin Ratio 1.1 L Quality Measures Quality Measures stroke Suspected type of Stroke: Non Acute Last known well (date): 11/21/24 Last known well (time): 03:00 Tenecteplase given: Reason(s) Tenecteplase not given: Stroke severity too mild (non-disabling) not given Assessment & Plan Assessment Current Active Medications: Generic Name Dose Route Start Last Admin Trade Name Freq PRN Reason Stop Dose Admin Acetaminophen 650 mg 11/22/24 23:56 11/23/24 05:23 Acetaminophen 325 Mg Tablet PO 12/22/24 08:06 650 mg Q4HR PRN Administration Fever > 100.3 or pain 1-3 Atorvastatin Calcium 80 mg 11/21/24 21:00 11/22/24 20:30 Atorvastatin Calcium 20 Mg Tablet PO 12/21/24 20:59 80 mg HS NURIS Administration Heparin Sodium (Porcine) 5,000 unit 11/22/24 10:15 11/23/24 09:00 Heparin Sod Inj 5000 Unit/Ml Vial SC 12/06/24 10:14 Not Given Q12HR NURIS Ibuprofen 400 mg 11/23/24 09:48 Ibuprofen Tab 400 Mg Tablet PO 12/23/24 07:52 Q6HR PRN PAIN OR FEVER > 100.3 Ondansetron HCl 4 mg 11/21/24 08:58 11/23/24 08:11 Ondansetron Inj 2 Mg/Ml Inj 2 Ml IV 12/21/24 08:57 4 mg Q4HR PRN Administration NAUSEA OR VOMITING
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
--- NOTE | 2024-11-23 14:32 | ESPR_ITS ---
Documentation for date of: 11/23/24 Subjective Subjective Interval history: Patient seen and examined at bedside. No acute overnight events. Today, she complains of left-sided headache which improved after receiving Tylenol and NSAIDs. EEG taken and read, relatively normal. Suspect the patient's symptoms may be psychogenic in nature and will recommend a psych evaluation as an outpatient. In the interim, will recommend Zoloft 25 mg daily. Exam Vital Signs Temp Pulse Resp BP Pulse Ox O2 Del Method O2 Flow Rate 97.2 F 80 19 123/69 99 Room Air 2 11/23/24 12:00 11/23/24 12:00 11/23/24 12:00 11/23/24 12:00 11/23/24 12:00 11/23/24 12:00 11/22/24 19:50 Narrative Exam GENERAL: AAOX3 NEURO: Able to move all extremities. Strength in left upper and lower extremity about 3/5. Strength in right extremities 4/5. Endorses dizziness in standing position. No tremors, sensation intact. HEENT: Moist mucosa. Eyes open, symmetrical, & clear CARDIO: No chest pain on palpation. Heart RRR, no obvious murmurs PULM: No noted coughing/dyspnea. Lungs CTA B/L, no R/W/R GI: Abdomen soft, nondistended, no pain on palpation. BSx4 URO/TERMINAL COMPUTER OPERATOR:: No further abnormalities noted. SKIN/MSK/EXT: No wounds/rashes/edema/amputations, no pain on palpation. Pedal pulses present B/L Objective Labs 11/23/24 05:36 11/23/24 05:36 Labs: Laboratory Results - last 24 hr 11/23/24 05:36 WBC 5.5 RBC 4.19 Hgb 12.9 Hct 39.1 MCV 93 MCH 30.8 MCHC 33.0 RDW Std Deviation 52.8 H Plt Count 221 Neut % (Auto) 50 Lymph % (Auto) 34 [place] % (Auto) 13 H Eos % (Auto) 2 Baso % (Auto) 1 Neut # (Auto) 2.7 Lymph # (Auto) 1.9 [place] # (Auto) 0.7 Eos # (Auto) 0.1 Baso # (Auto) 0.0 Immature Gran # (Auto) 0.02 H Absolute Nucleated RBC 0.00 Immature Gran % 0 Nucleated RBC % 0 Sodium 137 Potassium 4.5 Chloride 104 Carbon Dioxide 25.1 Anion Gap 8 BUN 15 Creatinine 0.9 Estim Creat Clear Calc 82.5 eGFR > 60 BUN/Creatinine Ratio 17 Glucose 89 Calculated Osmolality 273 L Calcium 9.3 Corrected Calcium 9.3 Magnesium 1.9 Total Bilirubin 0.8 AST 23 ALT 22 Alkaline Phosphatase 70 Total Protein 7.6 Albumin 4.0 Globulin 3.6 H Albumin/Globulin Ratio 1.1 L Quality Measures Quality Measures stroke Suspected type of Stroke: Non Acute Last known well (date): 11/21/24 Last known well (time): 03:00 Tenecteplase given: Reason(s) Tenecteplase not given: Stroke severity too mild (non-disabling) not given Rehab services: PT evaluation ordered and Speech Language Pathology eval ordered VTE Prophylaxis: mechanical Antithrombotic by day 2:: not indicated (describe) Statin ordered: not ordered Anticoagulation ordered for A-fib or flutter (current or hx): not indicated Assessment & Plan Assessment Current Active Medications: Generic Name Dose Route Start Last Admin Trade Name Freq PRN Reason Stop Dose Admin Acetaminophen 650 mg 11/22/24 23:56 11/23/24 05:23 Acetaminophen 325 Mg Tablet PO 12/22/24 08:06 650 mg Q4HR PRN Administration Fever > 100.3 or pain 1-3 Atorvastatin Calcium 80 mg 11/21/24 21:00 11/22/24 20:30 Atorvastatin Calcium 20 Mg Tablet PO 12/21/24 20:59 80 mg HS NURIS Administration Heparin Sodium (Porcine) 5,000 unit 11/22/24 10:15 11/23/24 09:00 Heparin Sod Inj 5000 Unit/Ml Vial SC 12/06/24 10:14 Not Given Q12HR NURIS Ibuprofen 400 mg 11/23/24 09:48 Ibuprofen Tab 400 Mg Tablet PO 12/23/24 07:52 Q6HR PRN PAIN OR FEVER > 100.3 Ondansetron HCl 4 mg 11/21/24 08:58 11/23/24 08:11 Ondansetron Inj 2 Mg/Ml Inj 2 Ml IV 12/21/24 08:57 4 mg Q4HR PRN Administration NAUSEA OR VOMITING Plan Summary: The patient is a 49-year-old female with a past medical history of CAD, depression and possible seizure who presented to the ED on 11/21/2024 with left sided weakness, chest pain and seizure-like activities. Patient was admitted for CVA and seizure workup. #Left-sided weakness #Acute CVA ruled out #?Nonepileptic seizure activity The patient presented with left-sided weakness and seizure-like activities that she reports to have noticed the night before admission. Stroke alert was called initially and patient was admitted for acute CVA workup. All imaging including head CT/CTA and MRI head were negative. EEG was also done which was relatively normal. Suspect the patient had nonepileptic form seizures and symptoms could likely be psychogenic in nature. Recommend start the patient on Zoloft 25 mg daily and for psych evaluation as an outpatient. Plan: - Patient stable to be discharged from neurology standpoint - Sertraline 25 mg daily - For outpatient psych eval Case was discussed with attending physician, Dr Carmen Dean MD PGY-1 Disclaimer: This note was dictated by speech recognition. Minor errors in fence machine operator may be present due to voice recognition software. Attending Provider Attestation/Addendum I personally have seen and examined the patient at the bedside and I agree with resident findings, assessment and plan of care. Patient is stable for discharge as the workup has been negative.
--- NOTE | 2024-11-25 14:25 | PC.CC ---
Per SS notes, pt health insurance doesn't over outside hospital services and pt was informed. Pt states she is from [place] and has been staying with him for about 15 days. Pt states she will be returning back to [place] once she is d/c. Unable to establish HH for the pt. Spoke to [facility] and she stated pt was discharged home not home with home health. HH referral is canceled.
== END 2024-11-23 18:35 | disposition home health service (06) | DRG 861 ==
LOC: SERX 10:40 → SERHOLD 10:44 → S2NX 17:30
PROVIDERS: Internal Medicine; Admitting Provider Student in an Organized Health Care Education/Training Program; Emergency Provider Emergency Medicine; Visit Provider Student in an Organized Health Care Education/Training Program
DX: R53.1 Weakness (principal); G40.909 Epilepsy, unspecified, not intractable, without status epilepticus; I25.10 Atherosclerotic heart disease of native coronary artery without angina pectoris; R00.0 Tachycardia, unspecified; R51.9 Headache, unspecified; I10 Essential (primary) hypertension; Z79.899 Other long term (current) drug therapy
CPT/HCPCS: 36415; 70450; 70496; 70498; 70544; 80053; 80061; 80307; 80320; 81001; 83036; 83605; 83735; 84145; 84443; 84484; 84703; 85025; 85610; 85730; 87077; 87086; 87186; 92610; 93005; 95816; 96374; 96375; 97162; 99285; A4649; J1953; J2060; J2405; Q9967; A9270; G0480